=== PATIENT | female | born 2000 | race Caucasian/White ===

== ENCOUNTER 2019-08-04 07:57 | Emergency (ER) | payer SELFPAY ==
[2019-08-04] MEDS ORDERED: Metoclopramide IV* 5 MG/ML 2 ML VIAL IV ONE (08:08)
[2019-08-04] MEDS ORDERED: NS 0.9% 1000 ML** 1,000 ML IV ONE (08:08)
[2019-08-04] MEDS ORDERED: Acetaminophen TAB* 325 MG PO ONE (08:08)
[2019-08-04 08:38] LABS: ABS Lymphocytes 0.2 10^3/ul (1.0-4.8); ABS Monocytes 0.5 10^3/ul (0-0.8); ABS Neutrophils 6.2 10^3/ul (1.5-7.7); Eosinophil % 0.2 %; Hematocrit 32 % (35-47); Hemoglobin 11.6 g/dL (12.0-16.0); Lymphocyte % 3.5 %; Mean Corpuscular HGB Conc 36 g/dL (31-36); Mean Corpuscular Hemoglobin 35 pg (27-31); Mean Corpuscular Volume 97 fL (80-97); Nucleated Red Blood Cells % 0.2; Platelet Count 135 10^3/uL (150-450); Red Blood Count 3.32 10^6 /uL (3.70-4.87); Red Cell Distribution Width 14 % (10-15); Urine Appearance Clear; Urine Bilirubin Negative (Negative); Urine Blood Negative (Negative); Urine Color Yellow; Urine Glucose Negative (Negative); Urine Ketones Negative (Negative); Urine Nitrite Negative (Negative); Urine Protein Negative (Negative); Urine Specific Gravity 1.011 (1.010-1.030); Urine Urobilinogen Negative (Negative)
--- NOTE | 2019-08-04 08:40 | ED ---
Headache - HPI Summary HPI Summary: This patient is a 19-year-old 6 month female presenting to the ED with headache and feelings of sweats and chills. She has not taken her temperature at home. She has not been taking Tylenol for relief of her symptoms. Symptoms began last evening and have remained constant. She rates her headache currently at a 3/10. She recently moved to the [facility] and currently does not have [facility] follow-up. Denies any abdominal pain. She does admit to one episode of vomiting this morning. Denies hematemesis. Denies diarrhea, constipation, weakness, neck pain. She does endorse some photophobia, however she states this is typical with her migraines. She does have a migraine history , however states she has never seen a neurologist. Typically her migraines are located in the occipital area, today she states she is having pain to the frontal area. so far unremarkable. Denies any vaginal bleeding or discharge. Continues to feel movement. Denies flu vaccine this year. - History Of Current Complaint Chief Complaint: EDHeadache Stated Complaint: MIGRAINE PER PT Time Seen by Provider: 08/04/19 08:01 Hx Obtained From: Patient Onset/Duration: Sudden Onset Initially Headache Was: Initial Pain Scale(0-10)= - 8 Currently Pain Is: Current Pain Scale(0-10)= - 3 Timing: Constant Character: Throbbing Location of Headache: Frontal Aggravating Factor: Nothing Allevating Factors: Nothing Associated Signs And Symptoms: Nausea, Fever - Risk Factors SAH Risk Factors: Negative Meningitis Risk Factors: Negative SDH Risk Factors: Negative Temporal Arteritis Risk Factors: Female - Allergies/Home Medications Allergies/Adverse Reactions: Allergies Allergy/AdvReac Type Severity Reaction Status Date / Time No Known Allergies Allergy Verified 08/04/19 08:01 Home Medications: Home Medications Vitamin TAB* 1 tab PO DAILY 08/04/19 [History Confirmed 08/04/19] PMH/Surg Hx/FS Hx/Imm Hx Previously Healthy: Yes - Immunization History Hx Pertussis Vaccination: No Immunizations Up to Date: Yes Infectious Disease History: No Infectious Disease History: Denies: Traveled Outside the [place] in Last 30 Days - Social History Occupation: Unemployed Lives: With Family Alcohol Use: None Hx Substance Use: No Substance Use Type: Reports: None Hx Tobacco Use: No Smoking Status (MU): Never Smoked Tobacco Review of Systems Positive: Fever, Chills. Negative: Fatigue, Skin Diaphoresis Positive: Photophobia. Negative: Blurred Vision, Erythema Negative: Palpitations, Chest Pain Negative: Shortness Of Breath, Cough Positive: Vomiting, Nausea. Negative: Abdominal Pain, Diarrhea Genitourinary: Negative Positive: no symptoms reported, see HPI Negative: Arthralgia, Myalgia Skin: Negative Positive: Headache - mild at this time 12/19 All Other Systems Reviewed And Are Negative: Yes Physical Exam Triage Information Reviewed: Yes Vital Signs On Initial Exam: Initial Vitals Temp Pulse Resp BP Pulse Ox 100.8 F 103 14 115/74 98 08/04/19 07:59 08/04/19 07:59 08/04/19 07:59 08/04/19 07:59 08/04/19 07:59 Vital Signs Reviewed: Yes Appearance: Positive: Well-Appearing, Well-Nourished Skin: Positive: Warm, Skin Color Reflects Adequate Perfusion Head/Face: Positive: Normal Head/Face Inspection Eyes: Positive: EOMI, ALIE, Conjunctiva Clear Procedures - Sedation Patient Received Moderate/Deep Sedation with Procedure: No Diagnostics - Vital Signs Vital Signs Temp Pulse Resp BP Pulse Ox 08/04/19 08:36 101 108/76 100 08/04/19 08:04 111 98 08/04/19 07:59 100.8 F 103 14 115/74 98 - Laboratory Lab Results: Lab Results 08/04/19 Range/Units 08:24 Influenza A (Rapid) Pending Influenza B (Rapid) Pending Result Diagrams: 08/04/19 08:24 08/04/19 08:24 Lab Statement: Any lab studies that have been ordered have been reviewed, and results considered in the medical decision making process. Headache Course/Dx - Course Course Of Treatment: During the course treatment, the patient is evaluated for headache and photophobia. Patient does have a history of migraines, but states this feels dissimilar. She states typically her migraines are located in the occipital area and today it is located in the frontal area. She denies any neck pain or stiffness. Denies any cough or congestion. She states she has had feelings of sweats and chills, but no subjective fevers. She did have one episode of vomiting this morning. Patient states she is not feeling nauseous at this time and denies any abdominal pain. Currently 6 months and does not have [facility] follow-up here in [facility]. On physical examination, pt appears well and does not appear to be sensitive to the light. She is A & O x 3. Lungs CTA, no maxillary sinus tenderness, tachycardic at 103. She is given fluids and tylenol with good relief. Continues to have a DESAI but rated 2/ 10 at this time. Patient is given reglan and close f/u with OBGYN. Pt given strict return precautions regarding fever and DESAI. Flu negative. Denies coughing. Low risk for meningitis and pt denies neck pain or stiffness. Now, denies photophobia. Tylenol improved DESAI. Discussed tx options with pt. Pt states she is OK for DC at this time, will take tylenol, drink plenty of fluids and f/u with OB. She understands if she continues to have temps despite tylenol to return to the ED. - Diagnoses Differential Diagnosis/HQI/PQRI: Sinus Headache, Tension Headache, Viral Syndrome Provider Diagnoses: Fever, Headache Discharge ED - Sign-Out/Discharge Documenting (check all that apply): Patient Departure - Discharge Plan Condition: Stable Disposition: HOME Prescriptions: Metoclopramide TAB* [Reglan TAB*] 10 mg PO Q8H #15 tab Patient Education Materials: Fever in Adults (ED) Referrals: Kiara Marin MD [Medical Doctor] - No Primary Care Phys,NOPCP [Primary Care Provider] - Additional Instructions: Please follow up with [facility] as soon as possible Reglan up to 3 times daily as needed for nausea Please return immediately to the ED if he develop any worsening pain or symptoms - Billing Disposition and Condition Condition: STABLE Disposition: Home - Attestation Statements Provider Attestation: I was available for consult. This patient was seen by the PB. The patient was not presented to, seen by, or examined by me. Gurinder Barrow MD
[2019-08-04 08:43] LABS: Urine Bacteria 1+ (Absent); Urine Red Blood Cell Trace(0-2/hpf) (Absent); Urine Squamous Epithelial Cell Present (Absent); Urine White Blood Cell Trace(0-5/hpf) (Absent)
[2019-08-04 08:46] LABS: Albumin 3.7 g/dL (3.2-5.2); Potassium 3.3 mmol/L (3.5-5.0); Total Bilirubin 0.5 mg/dL (0.2-1.0)
[2019-08-04 08:52] LABS: Albumin/Globulin Ratio 1.2 (1-3); BUN/Creatinine Ratio 7.3 (8-20); EGFR African American 170.5 (>60); EGFR Non-African American 140.9 (>60); Globulin 3.2 g/dL (2-4); Total Protein 6.9 g/dL (6.4-8.9)
[2019-08-04 08:57] LABS: Influenza A Molecular NEGATIVE (Negative); Influenza B Molecular NEGATIVE (Negative)
[2019-08-04 10:29] VITALS: BP 107/62
== END 2019-08-04 10:28 | disposition home or self-care (01) ==
LOC: ED 07:57
DX: R51 Headache (principal); R50.9 Fever, unspecified
CPT/HCPCS: 36415; 80053; 81003; 81015; 85025; 87086; 96361; 96374; 99283; A9270-GY; J2765

== ENCOUNTER 2019-08-04 20:43 | Emergency (ER) | payer SELFPAY ==
--- NOTE | 2019-08-04 21:01 | ED ---
HPI Febrile Illness - HPI Summary HPI Summary: The patient is a 19 y/o F arriving by ambulance to [facility] accompanied by female licensed marriage and family therapist with a chief complaint of worsening fever throughout the day and headache since last night. She reports that prior to the headache beginning yesterday, she had been on a flight from [place] to [place], and she felt okay then. After arriving home, she developed a frontal headache and had difficulty sleeping. She came to the ED this morning because of the headache, nausea, and an episode of vomiting, and she had a mild fever then. After being discharged, she had Tylenol at 1400 and Reglan at 1630. Her fever and headache have since persisted. Currently, her pain is rated 4/10 in severity. She has a decreased appetite but is drinking liquids. She hasnt been very active today as she feels fatigued. She additionally endorses body aches, nonproductive cough, SOB, and dizziness. She denies any rash, visual changes, neck pain, or sore throat. She is currently 6 months and has been experiencing intermittent headaches with the . She denies any vaginal discharge or bleeding. She has been using vitamins and has received care for the in [place]. A0. No PMHx. Nonsmoker, no EtOH, no substance use. Medications reviewed. Allergies noted. - History of Current Complaint Chief Complaint: EDFever Time Seen by Provider: 08/04/19 20:51 Hx Obtained From: Patient Onset/Duration: Started Hours Ago, Still Present Timing: Lasting Hours Initial Severity: Mild Current Severity: Moderate Pain Intensity: 4 Pain Scale Used: 0-10 Numeric Aggravating Factors: Nothing Alleviating Factors: Nothing - Tyelnol to no relief Associated Signs and Symptoms: Cough - nonproductive, Dizziness, Fluid Intake - normal, Headache - frontal, Nausea, SOB, Vomiting - one episode, Other: - body aches, difficulty sleeping, fatigue; Negative: rash, visual changes, neck pain, sore throat - Allergy/Home Medications Allergies/Adverse Reactions: Allergies Allergy/AdvReac Type Severity Reaction Status Date / Time No Known Allergies Allergy Verified 08/04/19 08:01 PMH/Surg Hx/FS Hx/Imm Hx Respiratory History: Denies: Hx Asthma Sensory History: Denies: Hx Deafness EENT History: Denies: Hx Deafness - Surgical History Surgical History: None Surgery Procedure, Year, and Place: none Infectious Disease History: No Infectious Disease History: Denies: Traveled Outside the [place] in Last 30 Days - Family History Known Family History: Negative: Diabetes - Social History Alcohol Use: None Hx Substance Use: No Substance Use Type: Reports: None Hx Tobacco Use: No Smoking Status (MU): Never Smoked Tobacco Review of Systems Positive: Fever, Fatigue Negative: Other - visual changes Negative: Sore Throat Positive: Shortness Of Breath, Cough - nonproductive Positive: Vomiting - one episode (resolved), Nausea, Other - decreased appetite , normal fluid intake Negative: discharge, other - vaginal bleeding Negative: Other - neck pain Negative: Rash Neurological: Other - dizziness, difficulty sleeping Positive: Headache - frontal All Other Systems Reviewed And Are Negative: Yes Physical Exam - Summary Physical Exam Summary: Appearance: Well-appearing, Well-nourished, lying in bed comfortably Skin: Warm, dry, no obvious rash Eyes: sclera anicteric, no conjunctival pallor ENT: mucous membranes moist, pharynx appears normal Neck: Supple, nontender, negative Kernig's sign and Brudzinski's signs, no meningismus Respiratory: Clear to auscultation, no signs of respiratory distress Cardiovascular: Normal S1, S2. No murmurs. Normal distal pulses in tibial and radial bilaterally. Abdomen: Soft, nontender, normal active bowel sounds present Musculoskeletal: Normal, Strength/ROM Intact Neurological: A&Ox3, awake and alert, mentation is normal, speech is fluent and appropriate Psychiatric: affect is normal, does not appear anxious or depressed Triage Information Reviewed: Yes Vital Signs On Initial Exam: Initial Vitals Temp Pulse Resp BP Pulse Ox 101.4 F 130 18 111/60 99 08/04/19 20:47 08/04/19 20:47 08/04/19 20:47 08/04/19 20:47 08/04/19 20:47 Vital Signs Reviewed: Yes Procedures - Sedation Patient Received Moderate/Deep Sedation with Procedure: No Diagnostics - Vital Signs Vital Signs Temp Pulse Resp BP Pulse Ox 08/04/19 20:47 101.4 F 130 18 111/60 99 - Laboratory Lab Statement: Any lab studies that have been ordered have been reviewed, and results considered in the medical decision making process. - Radiology CXR Radiology Interpretation Completed By: ED Physician Summary of Radiographic Findings: No acute process. ED physician has reviewed and interpreted this report. Pending official read. Re-Evaluation - Re-Evaluation First Eval Re-Evaluation Time: 22:00 Comment: I discussed all results and plan for discharge. Course/Dx - Course Course Of Treatment: Patient is a 19 y/o F arriving by ambulance for increased fever and headache since being seen in the ED this morning. She is 6 months and has been experiencing recurrent headaches with the pregnany, but she has associated nausea, decreased appetite, body aches, nonproductive cough, and dizziness. Physical exam is negative for Kernig's signs, Burdzinski's signs , and meningismus. In the ED course, the patient is administered Tylenol for fever. Blood work deferred as patient had labs drawn this morning. Flu negative earlier today. CXR is negative. heart tones of 144-148 BPM. Physical exam and CXR results discussed with Dr. Marin, IR[facility], and they agree with having the patient follow up with them for her . I discussed all results with the patient as well as the plan for discharge home. She understands and argees with this plan. Dx of fever. - Diagnoses Provider Diagnoses: Fever - Provider Notifications Discussed Care Of Patient With: Kiara Marin - [facility] Time Discussed With Above Provider: 21:50 Instructed by Provider To: Other - I discussed the patient's case with , and they will follow up with the patient during her . Discharge ED - Sign-Out/Discharge Documenting (check all that apply): Patient Departure - Patient will be discharged home. - Discharge Plan Condition: Good Disposition: HOME Patient Education Materials: Fever in Adults (ED) Referrals: Kiara Marin MD [Medical Doctor] - 3 Days Additional Instructions: Your chest xray and the blood work and flu swab done earlier today all look ok. The baby appears to be tolerating this as well, there is a normal heart rate and you have been feeling good movement. Until and unless we find an obvious bacterial infection I would not recommend antibiotics, but you can take tylenol for headache and fever. Making a more precise diagnosis right now is not possible, but be alert for changes in your symptoms or new signs such as a rash or something. I spoke to the web applications programmer OB, Dr. Marin. She did not recommend anything further tonight, but please contact her office tomorrow to make a followup appointment this week. - Billing Disposition and Condition Condition: GOOD Disposition: Home - Attestation Statements Document Initiated by Devin: Yes Documenting Scribe: Nadine Bonilla Provider For Whom Devin is Documenting (Include Credential): Dr. Atif Pizano MD Scribe Attestation: I, Nadine Bonilla, scribed for Dr. Atif Pizano MD on 08/05/19 at 0022. Scribe Documentation Reviewed: Yes Provider Attestation: The documentation as recorded by the Nadine hand accurately reflects the service I personally performed and the decisions made by me, Dr. Atif Pizano MD Status of [place]rh[place]ley[place] Document: Viewed
[2019-08-04] MEDS ORDERED: Acetaminophen TAB* 325 MG PO ONE (21:30)
[2019-08-04 22:05] VITALS: BP 107/69
== END 2019-08-04 22:12 | disposition home or self-care (01) ==
LOC: ED 20:43
DX: R50.9 Fever, unspecified (principal)
CPT/HCPCS: 71046; 99283; A9270-GY